=== PATIENT | male | born 1945 | race Native Hawaiian/Other Pacific Islander ===

== ENCOUNTER 2017-08-14 13:25 | Outpatient (CLI) | payer OTHER ==
[2017-08-14 14:04] LABS: PLATELET COUNT 254 K/uL (142-355)
== END 2017-08-14 22:19 | disposition home or self-care (01) ==
LOC: LAB 13:25
PROVIDERS: Nurse Practitioner Family
DX: I10 Essential (primary) hypertension (principal); R53.81 Other malaise; R53.83 Other fatigue; Z79.899 Other long term (current) drug therapy; Z51.81 Encounter for therapeutic drug level monitoring
CPT/HCPCS: 80053; 80061; 83036; 84154; 84436; 84443; 85027